=== PATIENT | female | born 1940 | race Caucasian/White ===

== ENCOUNTER → 2017-08-20 | Outpatient (CLI) | payer OTHER | END | disposition home or self-care (01) | LOC: CFH 09:19 | PROVIDERS: ATTEND Internal Medicine | DX: J45.991 Cough variant asthma (principal); R14.0 Abdominal distension (gaseous); R10.13 Epigastric pain | CPT/HCPCS: 71046; 74150 ==

== ENCOUNTER → 2018-02-16 | Outpatient (CLI) | payer OTHER ==
[~2018-02-16] MED LIST: OMNIPAQUE 350 MG/ML, 100ML BOTTLE ONE
== END | disposition home or self-care (01) ==
LOC: CFH 09:56
PROVIDERS: ATTEND Otolaryngology Facial Plastic Surgery
DX: D49.0 Neoplasm of unspecified behavior of digestive system (principal); K11.21 Acute sialoadenitis
CPT/HCPCS: 70491; Q9967

== ENCOUNTER → 2018-03-18 | Outpatient (CLI) | payer OTHER | END | disposition home or self-care (01) | LOC: RAD 03-17 10:37 | PROVIDERS: ATTEND Otolaryngology Facial Plastic Surgery | DX: D37.030 Neoplasm of uncertain behavior of the parotid salivary glands (principal) | CPT/HCPCS: 70543; A9585 ==

== ENCOUNTER 2018-05-02 05:42 | Observation (INO) | payer OTHER ==
[2018-04-29 15:10] LABS: BASOPHILS # (AUTO) 0.05 x10^3/uL (0-0.1); BASOPHILS % (AUTO) 1 % (0-1); EOSINOPHILS # (AUTO) 0.15 x10^3/uL (0-0.4); EOSINOPHILS % (AUTO) 2 % (1-7); LYMPHOCYTES # (AUTO) 2.25 x10^3/uL (1-3.4); LYMPHOCYTES % (AUTO) 30 % (22-44); MD NO; MEAN CORPUSCULAR HEMOGLOBIN 29.7 pg (27.0-34.8); MEAN CORPUSCULAR HGB CONC 33.9 g/dL (32.4-35.8); MEAN CORPUSCULAR VOLUME 87.4 fL (80-100); MEAN PLATELET VOLUME 7.5 fL (7.4-10.4); MONOCYTES # (AUTO) 0.54 x10^3/uL (0.2-0.8); MONOCYTES % (AUTO) 7 % (2-9); NEUTROPHILS # (AUTO) 4.56 x10^3/uL (1.8-6.8); NEUTROPHILS % (AUTO) 61 % (42-75); PLATELET COUNT 279 x10^3/uL (130-400); RED BLOOD COUNT 4.77 x10^6/uL (3.82-5.3); RED CELL DISTRIBUTION WIDTH 13.9 % (9.6-15.2)
[2018-04-29 15:18] LABS: ALANINE AMINOTRANSFERASE 19 U/L (12-78); ALBUMIN 3.4 g/dL (3.4-5.0); ANION GAP 6 mmol/L (5-15); CALCIUM 9.4 mg/dL (8.5-10.1); CHLORIDE 104 mmol/L (98-107); CREATININE 1.34 mg/dL (0.55-1.02)
[2018-04-29 15:20] LABS: ALKALINE PHOSPHATASE 95 U/L (45-117); BILIRUBIN,TOTAL 0.3 mg/dL (0.2-1.0); TOTAL PROTEIN 7.6 g/dL (6.4-8.2)
[~2018-05-02] VITALS: Ht 165.1 cm; Wt 93.9 kg
[~2018-05-02 05:42] MED LIST changes: +AMIT25TA PO; +AMLO5TAB7 PO; +ATOR20TA9 PO; +CALC500T93 PO; +CHOL2000 PO; +GLYC1DRO EACHEYE; +HYDR25TA6 PO; +METF500T17 PO; +OASIS EYE EACHEYE; -OMNIPAQUE 350 MG/ML, 100ML BOTTLE ONE; +PARO40TA3 PO; +PIOG45TA64 PO
[2018-05-02] MEDS ORDERED: LACTATED RINGERS 1,000 ML IV SCH ×2 (06:40→19:30)
[2018-05-02] MEDS ORDERED: NEOSPORIN OINT. PKT 1 PACKET ONE (06:43)
[2018-05-02] MEDS ORDERED: LIDOCAINE 1%-EPI 1:100K, 30ML ONE (06:43)
[2018-05-02] MEDS ORDERED: MICROFIBRILLAR COLLAGEN 1 GM TP ONE (06:59)
[2018-05-02] MEDS ORDERED: MUPIROCIN OINT 2%, 22GM ONE (06:59)
[2018-05-02] MEDS ORDERED: LIDOCAINE-MPF 1%, 2ML INFIL ONE (07:00)
[2018-05-02] MEDS ORDERED: MIDAZOLAM 1 MG/ML, 2ML ONE (07:09)
[2018-05-02] MEDS ORDERED: FENTANYL PF 250 MCG/5ML ONE (07:09)
[2018-05-02] MEDS ORDERED: ROCURONIUM 10MG/ML,5ML ONE (07:11)
[2018-05-02] MEDS ORDERED: PROPOFOL 10 MG/ML, 20ML ONE (07:11)
[2018-05-02] MEDS ORDERED: SUCCINYLCHOLINE 20 MG/ML, 10ML ONE (07:11)
[2018-05-02] MEDS ORDERED: EPHEDRINE 50 MG/ML, 1ML ONE (07:55)
[2018-05-02] MEDS ORDERED: CEFAZOLIN 1,000 MG ONE (07:58)
[2018-05-02] MEDS ORDERED: MEPERIDINE/PF 25MG/0.5ML IVPush PRN (08:30)
[2018-05-02] MEDS ORDERED: LORazepam 2 MG/ML, 1ML IVPush PRN (08:30)
[2018-05-02] MEDS ORDERED: SCOPOLAMINE PATCH, 1.5MG PATCH.TD72 TD PRN (08:30)
[2018-05-02] MEDS ORDERED: ACETAMINOPHEN 325 MG TABLET PO PRN (08:30)
[2018-05-02] MEDS ORDERED: MIDAZOLAM 1 MG/ML, 2ML IV PRN (08:30)
[2018-05-02] MEDS ORDERED: hydrALAzine 20 MG/ML, 1ML IV PRN (08:30)
[2018-05-02] MEDS ORDERED: ONDANSETRON 2MG/ML, 2ML IV PRN (08:30)
[2018-05-02] MEDS ORDERED: OXYcodone 5 MG/5 ML ORAL.SOL UDC PO PRN (08:30)
[2018-05-02] MEDS ORDERED: EPHEDRINE 50 MG/ML, 1ML IVPush PRN (08:30)
[2018-05-02] MEDS ORDERED: MORPHINE SULFATE 4 MG/ML, 1ML IVPush PRN (08:30)
[2018-05-02] MEDS ORDERED: FENTANYL PF 100 MCG/2ML IV PRN (08:30)
[2018-05-02] MEDS ORDERED: HYDROmorphone 1 MG/ML, 1ML IV PRN (08:30)
[2018-05-02] MEDS ORDERED: HALOPERIDOL 5 MG/ML IV PRN (08:30)
[2018-05-02] MEDS ORDERED: ONDANSETRON ODT 8 MG PO PRN (08:30)
[2018-05-02] MEDS ORDERED: LABETALOL 5MG/ML, 20ML IV PRN (08:30)
[2018-05-02] MEDS ORDERED: PROMETHAZINE 12.5 MG SUPP PR PRN (08:30)
[2018-05-02] MEDS ORDERED: ALBUTEROL SULFATE 2.5 MG/3 ML NPPB PRN (08:30)
[2018-05-02] MEDS ORDERED: PROMETHAZINE 25 MG/ML, 1ML IV PRN (08:30)
[2018-05-02] MEDS ORDERED: FENTANYL PF 100 MCG/2ML ONE (09:57)
[2018-05-02] MEDS ORDERED: HYDROcodone/APAP 5/325 TABLET ONE (15:08)
[2018-05-02] MEDS ORDERED: ONDANSETRON 2MG/ML, 2ML ONE (15:50)
[2018-05-02] MEDS ORDERED: DEXAMETHASONE 4 MG/ML, 1ML ONE (15:50)
[2018-05-02] MEDS ORDERED: ONDANSETRON 2MG/ML, 2ML IVPush PRN (17:00)
[2018-05-02 19:30] VITALS: BP 110/65
[2018-05-02] MEDS ORDERED: AMLODIPINE 5 MG TABLET PO SCH (21:00)
[2018-05-02] MEDS ORDERED: ATORVASTATIN 20 MG TABLET PO SCH (21:00)
[2018-05-02] MEDS: AMITRIPTYLINE 25 MG TABLET PO SCH ×2 (22:04→23:35)
[2018-05-02] MEDS: INSULIN REGULAR 100 UNITS/ML, 3ML VIAL SQ-INSULIN SCH (22:57)
[2018-05-03 00:05] VITALS: BP 145/80
[2018-05-03 02:37] VITALS: BP 120/74
[2018-05-03 06:34] VITALS: BP 125/77
[2018-05-03] MEDS: INSULIN REGULAR 100 UNITS/ML, 3ML VIAL SQ-INSULIN SCH ×2 (07:00→11:00)
[2018-05-03] MEDS ORDERED: metFORMIN 500 MG TABLET PO SCH (08:00)
[2018-05-03] MEDS ORDERED: HYDROCHLOROTHIAZIDE 25 MG TABLET PO SCH (09:00)
[2018-05-03] MEDS ORDERED: PIOGLITAZONE 15 MG TABLET PO SCH (09:00)
[2018-05-03] MEDS ORDERED: PAROXETINE 20 MG TABLET PO SCH (09:00)
== END 2018-05-03 11:45 | disposition home or self-care (01) ==
LOC: OUT 05:42 → ORIP 16:50 → 4NOR 19:00 → DCLOUNGE 05-03 11:20
PROVIDERS: ADMIT Otolaryngology Facial Plastic Surgery; ATTEND Otolaryngology Facial Plastic Surgery
DX: D11.0 Benign neoplasm of parotid gland (principal); E11.9 Type 2 diabetes mellitus without complications; I10 Essential (primary) hypertension
CPT/HCPCS: 36415; 42415; 71046; 80053; 82962; 85025; 88305; 88331; 93005; 96372; C1729; G0378; J0330; J0690; J1100; J1815; J2250; J2405; J2704; J3010; J3490; J7120

== ENCOUNTER 2020-07-22 13:12 | Emergency (ER) | payer SELFPAY ==
[~2020-07-22] VITALS: Ht 165.1 cm; Wt 87.5 kg
[~2020-07-22 13:12] MED LIST changes: +AMLO-150 PO; -AMLO5TAB7 PO; +ATOR20TA37 PO; -ATOR20TA9 PO
[2020-07-22 14:14] LABS: ALANINE AMINOTRANSFERASE 20 U/L (12-78); ANION GAP 10 mmol/L (5-15); CALCIUM 8.7 mg/dL (8.5-10.1); CHLORIDE 100 mmol/L (98-107)
[2020-07-22 14:16] LABS: BASOPHILS % (AUTO) 0 % (0-1); EOSINOPHILS % (AUTO) 0 % (1-7); LYMPHOCYTES % (AUTO) 20 % (22-44); MEAN CORPUSCULAR HEMOGLOBIN 29.5 pg (27.0-34.8); MEAN CORPUSCULAR HGB CONC 33.6 g/dL (32.4-35.8); MONOCYTES % (AUTO) 7 % (2-9); NEUTROPHILS % (AUTO) 73 % (42-75); PLATELET COUNT 119 x10^3/uL (130-400); RED BLOOD COUNT 4.24 x10^6/uL (3.82-5.3); RED CELL DISTRIBUTION WIDTH 14.7 % (9.6-15.2)
[2020-07-22 14:18] LABS: MD NO
[2020-07-22 14:21] LABS: ALKALINE PHOSPHATASE 76 U/L (45-117); BILIRUBIN,TOTAL 0.4 mg/dL (0.2-1.0); TOTAL PROTEIN 7.2 g/dL (6.4-8.2)
[2020-07-22 15:51] VITALS: BP 132/51
== END 2020-07-22 15:54 | disposition home or self-care (01) ==
LOC: ED 14:51
DX: U07.1 COVID-19 (principal); J18.1 Lobar pneumonia, unspecified organism; E11.9 Type 2 diabetes mellitus without complications; Z87.891 Personal history of nicotine dependence
CPT/HCPCS: 36415; 71045; 80053; 83615; 84145; 85025; 86140; 87635; 93005; 99285